=== PATIENT | female | born 1980 | race Native Hawaiian/Other Pacific Islander ===

== ENCOUNTER 2020-09-18 08:16 | Outpatient (CLI) | payer BC ==
[2020-09-18 09:43] LABS: PLATELET COUNT 298 K/uL (152-353)
[2020-09-18 10:18] LABS: POTASSIUM 4.2 mmol/L (3.6-5.2)
== END 2020-09-18 22:03 | disposition home or self-care (01) ==
LOC: CT 08:16
PROVIDERS: ATTEND Nurse Practitioner Family
DX: R10.12 Left upper quadrant pain (principal)
CPT/HCPCS: 36415; 80053; 80061; 81000; 82306; 82607; 82746; 83036; 84439; 84443; 85027; 87086; 87088; Q9963